=== PATIENT | male | born 1970 | race Caucasian/White ===

== ENCOUNTER → 2018-02-15 | Outpatient (CLI) | payer MEDICAID | LOC: GIMAGING 08:41 | PROVIDERS: ATTEND Family Medicine | DX: M47.897 Other spondylosis, lumbosacral region (principal) | CPT/HCPCS: 72100-PO ==

== ENCOUNTER → 2018-06-29 | Outpatient (CLI) | payer MEDICAID | LOC: FIMAGING 09:38 | PROVIDERS: ATTEND Physician Assistant | DX: S69.90XA Unspecified injury of unspecified wrist, hand and finger(s), initial encounter (principal) ==